=== PATIENT | female | born 1960 ===

== ENCOUNTER 2017-06-02 05:50 | Day surgery (SDC) | payer MEDICARE, MEDICAID ==
[2017-05-25 08:57] VITALS: BMI 39.0
[2017-06-02] MEDS ORDERED: Propofol 10 mg/ml Inj (20 ML) ONE (07:41)
[2017-06-02] MEDS ORDERED: Lidocaine 1% Inj (20ml) ONE (07:44)
[2017-06-02] MEDS ORDERED: Midazolam 2 MG/2 ML VIAL ONE (07:44)
[2017-06-02] MEDS ORDERED: Bupivacaine-Epi 0.25%-1:200,000 PF Inj ONE (07:44)
[2017-06-02] MEDS ORDERED: ceFAZolin IV 2 gm in Dextrose 1 GM/50 ML BAG IVPB ONE (07:44)
[2017-06-02] MEDS ORDERED: Lactated Ringer's 1,000 ML IV ONE (07:48)
[2017-06-02] MEDS ORDERED: HYDROmorphone 0.5 mg/0.5 ml ISec IVP PRN (08:45)
--- NOTE | 2017-06-02 08:47 | PCM.SURG1 ---
Surgeon's Initial Post Op Note - Surgeon's Notes Surgeon: Dr. Triana [employer] Clerk: Dr. Blue PGY-3 Type of Anesthesia: General Endo Pre-Operative Diagnosis: Right buttock lipoma Operative Findings: Right buttock lipoma Post-Operative Diagnosis: Right buttock lipoma Operation Performed: Excision of right buttock lesion Specimen/Specimens Removed: lipoma Estimated Blood Loss: EBL {In ML}: 10 Blood Products Given: N/A Drains Used: No Drains Post-Op Condition: Good Date of Surgery/Procedure: 06/02/17 Time of Surgery/Procedure: 08:46
--- NOTE | 2017-06-02 11:23 | OP ---
PROCEDURE DATE: 06/02/2017 PREOPERATIVE DIAGNOSIS: Lipoma of right buttock posterior thigh below intergluteal fold. PROCEDURE: Excision of lipoma. SURGEON: Rc Triana Jr., MD JOB BOSS: Dr. Blue. ANESTHESIA ADMINISTERED BY: Nubia Metcalf CRNA INDICATIONS: The patient is a middle-aged woman with history of coronary artery disease who presents with a large lipoma on the buttocks. OPERATIVE FINDINGS: The lesion was removed completely. It is approximately 7 cm in size and was basically fatty tissue. DESCRIPTION OF PROCEDURE: The patient was given general anesthesia and intravenous antibiotics and appropriately positioned. The lesion was then removed by sharp and blunt dissection. It was poorly encapsulated. After this has been done, the wound was approximated with Monocryl and Vicryl sutures and nylon sutures on the skin. Blood loss was less than 10 mL. Excision of 7 cm lipoma, buttocks. Rc Triana Jr., MD
[2017-06-02 11:42] VITALS: BP 99/64; PULSE 80; RESP 18; TEMP 97.5; O2SAT 100
== END 2017-06-02 11:15 | disposition home or self-care (01) ==
LOC: C.SDS 05:50
PROVIDERS: ATTEND Surgery Vascular Surgery
DX: D17.1 Benign lipomatous neoplasm of skin and subcutaneous tissue of trunk (principal)
CPT/HCPCS: 11406; 82948; 88304; J0690; J1885; J2001; J2250; J2405; J2704; J3010; J7120